=== PATIENT | female | born 1960 | race Two or more races ===

== ENCOUNTER → 2019-11-08 | Outpatient (CLI) | payer OTHER | END | disposition home or self-care (01) | LOC: OFIC 805 14:30 | PROVIDERS: ATTEND Otolaryngology Otology & Neurotology | DX: H93.12 Tinnitus, left ear (principal); H92.02 Otalgia, left ear ==

== ENCOUNTER 2019-12-22 16:01 | Outpatient (CLI) | payer OTHER | END 2019-12-22 16:20 | disposition home or self-care (01) | LOC: OFIC 805 16:01 | PROVIDERS: ATTEND Otolaryngology Otology & Neurotology | DX: H93.12 Tinnitus, left ear (principal); H92.02 Otalgia, left ear ==